=== PATIENT | female | born 1970 | race Caucasian/White ===

== ENCOUNTER 2019-11-14 09:57 | Emergency (ER) | payer OTHER ==
[2019-11-14] MEDS ORDERED: ASPIRIN 81 MG TABLET, CHEWABLE PO ONE (10:05)
[2019-11-14] MEDS ORDERED: MORPHINE SULFATE 10 MG/ML INJ IV ONE (10:08)
[2019-11-14] MEDS ORDERED: ONDANSETRON HCL INJ/PF 4 MG/2 ML SDV IV ONE (10:09)
--- NOTE | 2019-11-14 10:10 | ER Document Report ---
ED Medical Screen (RME) - General Chief Complaint: Chest Pain Stated Complaint: CHEST PAIN Time Seen by Provider: 11/14/19 10:05 Mode of Arrival: Wheelchair Information source: Patient Notes: 49-year-old female presented to ED for complaint of chest pressure squeezing pain x3 days. She states it is a level 2/5 at this time. She states she has had some shortness of breath starting yesterday and then she developed a cough. She states today she became much more lightheaded and nauseated. 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 She states she does not have any history of any surgeries. Last menstrual period was about 3 weeks ago. She states she does not smoke she does drink weekly and does not do any illicit drugs. She is alert oriented respirations regular nonlabored at this time. She does appear to be in some distress due to the discomfort. I have greeted and performed a rapid initial assessment of this patient. A comprehensive ED assessment and evaluation of the patient, analysis of test results and completion of medical decision making process will be conducted by an additional ED providers. - Related Data Allergies/Adverse Reactions: No Known Allergies Allergy (Unverified 11/14/19 10:07)
[2019-11-14 10:57] LABS: ABSOLUTE EOSINOPHILS # (AUTO) 0.2 10^3/uL (0.0-0.6); ABSOLUTE MONOCYTES (AUTO) 0.8 10^3/uL (0.1-1.4); ABSOLUTE NEUT (AUTO) 3.5 10^3/uL (1.7-8.2); BASOPHILS % (AUTO) 0.5 % (0-2); EOSINOPHILS % (AUTO) 2.8 % (0-6); HEMOGLOBIN 13.3 g/dL (12.0-15.5); LYMPHOCYTES % (AUTO) 30.4 % (13-45); MEAN CORPUSCULAR HEMOGLOBIN 32.2 pg (27.0-33.4); MEAN CORPUSCULAR HGB CONC 35.1 g/dL (32.0-36.0); MEAN CORPUSCULAR VOLUME 92 fl (80-97); MONOCYTES % (AUTO) 12.2 % (3-13); PLATELET COUNT 254 10^3/uL (150-450); RED BLOOD COUNT 4.15 10^6/uL (3.72-5.28); RED CELL DISTRIBUTION WIDTH 13.2 % (11.5-14.0); SEGMENTED NEUTROPHILS % (AUTO) 54.1 % (42-78); TOTAL CELLS COUNTED % (AUTO) 100 %; WHITE BLOOD COUNT 6.5 10^3/uL (4.0-10.5)
[2019-11-14 11:00] LABS: INTERNATIONAL RATION (INR) 0.91; PARTIAL THROMBOPLASTIN TIME 30.4 SEC (23.5-35.8); PROTHROMBIN TIME 12.5 SEC (11.4-15.4)
--- NOTE | 2019-11-14 11:01 | RADIOLOGY REPORT (SQ) ---
EXAM DESCRIPTION: CHEST 2 VIEWS IMAGES COMPLETED DATE/TIME: 11/14/2019 10:52 am REASON FOR STUDY: chest pain for 3 days COMPARISON: None. TECHNIQUE: Frontal and lateral radiographic views of the chest acquired. NUMBER OF VIEWS: Two view. LIMITATIONS: None. FINDINGS: LUNGS AND PLEURA: No opacities, masses or pneumothorax. No pleural effusion. MEDIASTINUM AND HILAR STRUCTURES: No masses or contour abnormalities. HEART AND VASCULAR STRUCTURES: Heart normal size. No evidence for failure. BONES: No acute findings. HARDWARE: None in the chest. OTHER: No other significant finding. IMPRESSION: NO SIGNIFICANT RADIOGRAPHIC FINDING IN THE CHEST. TECHNICAL DOCUMENTATION: JOB ID: [id number] 2010 [employer]- All Rights Reserved Reading location - IP/workstation name: [email or web address]
--- NOTE | 2019-11-14 11:13 | ER Document Report ---
ED General - General Chief Complaint: Chest Pain > 30 Stated Complaint: CHEST PAIN Time Seen by Provider: 11/14/19 10:05 Mode of Arrival: Wheelchair - [facility] Notes: Chief complaint: Chest pain History of present illness: 49-year-old female diagnosed with mitral valve prolapse over 5 years ago not taking any regular medication indicates that she has been under stress over the last 2 weeks and now reports a 5-day history of intermittent sharp fleeting central chest discomfort occurring at rest and some degree aggravated by movement and exertion. This is nonradiating. Associated with some minimal dyspnea. No diaphoresis. Slightly nauseated this morning. No vomiting. No cough or sputum production. No fever or chills. No hemoptysis. No history of CAD. No known history of thromboembolic disease. Patient is not diabetic. She is not hypertensive. She is a non-smoker. Family history is negative for CAD. She has no history of hyperlipidemia. She denies any use of illicit drugs. - Related Data Allergies/Adverse Reactions: No Known Allergies Allergy (Unverified 11/14/19 10:07) Home Medications: multivitamins, no rx Past Medical History - General Information source: Patient - Social History Smoking Status: Never Smoker Chew tobacco use (# tins/day): No Frequency of alcohol use: Social Drug Abuse: None Family History: Other - No thromboembolic disease. denies: CAD Patient has homicidal ideation: No - Past Medical History Cardiac Medical History: Reports: Other - Mitral prolapse Psychiatric Medical History: Reports: None Traumatic Medical History: Reports: None Surgical Hx: Negative Review of Systems - Review of Systems Notes: Constitutional: Negative for fever. HENT: Negative for sore throat. Eyes: Negative for visual changes. Cardiovascular: As per HPI. Respiratory: As per HPI. Gastrointestinal: Negative for abdominal pain, vomiting or diarrhea. Genitourinary: Negative for dysuria. Musculoskeletal: Negative for back pain. Skin: Negative for rash. Neurological: Negative for headaches, weakness or numbness. 10 point ROS negative except as marked above and in HPI. Physical Exam - Vital signs Vitals: Resp Pulse Ox 13 100 11/14/19 10:10 11/14/19 10:10 - Notes Notes: GENERAL: Female patient approximately stated age who is slightly tearful and anxious. SKIN: Good turgor no rashes. HEAD: Normocephalic atraumatic. EYES: PERRLA. EOMI. Conjunctivae and sclerae clear. EARS: CANALS AND TMS CLEAR. NOSE: CLEAR. MOUTH: Moist mucosa. Good dentition. No stridor or edema. No drooling. NECK: Supple. No masses or thyromegaly. No adenopathy. Carotids 2+ without bruits. No JVD. BACK: Symmetrical without tenderness. CHEST: Respirations unlabored. Breath sounds clear and symmetrical. HEART: Mild tenderness left anterior chest wall. Regular rhythm. No murmur gallop or rub. ABDOMEN: Soft nontender without masses, organomegaly or rebound. Bowel sounds normally active. No bruits. GENITALIA: Deferred. EXTREMITIES: Trace bilateral pretibial edema. No calf tenderness. Cap refill less than 1.5 seconds. Dorsalis pedis and posterior tibial pulses 3+ and symmetrical. NEUROLOGICAL: GCS 15. Alert and oriented x3. Normal gait. Fluent speech. Cranial nerves II through XII intact. Sensorimotor and cerebellar normal. Normal tone. PSYCHIATRIC: Tearful and anxious affect. Course - Re-evaluation Re-evalutation: 11/14/19 12:24 Patient has a low heart score. She has a history of mitral prolapse and her present symptoms I think are most consistent with mitral prolapse. Her troponin is normal. Her chest x-ray is normal. Her d-dimer is normal. Spoke with her in detail about her evaluation and current findings. She was given several options in terms of present management. After extended discussion of potential risks and benefits of beta-raf therapy she wants to try some low-dose metoprolol which I think would be very appropriate. I will also refer her to a muffler mechanic for outpatient follow-up. We discussed red flag symptoms which should prompt a return to the ED. Findings, clinical impression and plan of treatment have been discussed with patient/family. Understanding of current findings and recommendations has been acknowledged by them and there is agreement regarding disposition and follow-up. - Vital Signs Vital signs: Temp Pulse Resp BP Pulse Ox 9 L 131/67 H 100 11/14/19 12:01 11/14/19 12:01 11/14/19 12:01 - Laboratory Result Diagrams: 11/14/19 10:43 11/14/19 10:43 - EKG Interpretation by Me Additional EKG results interpreted by me: 11/14/19 11:14 Twelve-lead EKG from 1004 hrs. reviewed contemporaneously by me. Indication for study: Chest pain. Rate 85. Normal sinus rhythm. Normal intervals. Normal QRS axis +[address]/T wave changes present. No prior tracing for comparison. Interpretation: Normal tracing. Discharge - Discharge Clinical Impression: Chest pain, Mitral valve prolapse Condition: Stable Disposition: HOME, SELF-CARE Additional Instructions: Mitral Valve Prolapse Mitral valve prolapse is very common, affecting about 1 in 25 people. The mitral valve controls blood flow between the left atrium (upper chamber) and left ventricle of the heart. In mitral prolapse, the valve bulges back into the atrium when the ventricle contracts. Usually, mitral valve prolapse causes no symptoms, and requires no treatment. But some people with mitral prolapse have chest pain, palpitations, lightheadedness, or fatigue. In many of these cases, it's not really clear if the mitral prolapse is causing these symptoms. Mitral prolapse is diagnosed by an echocardiogram. If mitral prolapse is severe, or accompanied by mitral regurgitation (tello kflow of blood), the valve can be prone to infection. Infection of a heart valve is called endocarditis. The infection can start during dental or surgical procedures. Most patients with significant mitral prolapse should take antibiotics before procedures. If mitral prolapse is causing symptoms, medication can be prescribed. Most patients do not need any treatment at all. Call the doctor or return if you develop persistent palpitation, severe chest pain, fainting or severe dizziness, or any other significant change in your health. Take prescribed medication as instructed. Follow-up with referral muffler mechanic. Return here as needed for new or worsening symptoms: Pain that is worsening or unimproved Uncontrolled vomiting High fever or shaking chills Overall worsening Prescriptions: Metoprolol Succinate [Toprol Xl 25 mg Tab.sr] 25 mg PO DAILY #30 tab.sr.24h Referrals: ARMINDA GODINEZ MD [ACTIVE PROVISIONAL STAFF] - Follow up as needed
[2019-11-14 11:14] LABS: ALBUMIN 4.2 g/dL (3.5-5.0); ALKALINE PHOSPHATASE 56 U/L (38-126); ANION GAP 6 (5-19); ASPARTATE AMINO TRANSFERASE 17 U/L (14-36); BILIRUBIN,DIRECT 0.2 mg/dL (0.0-0.4); BILIRUBIN,TOTAL 0.5 mg/dL (0.2-1.3); BLOOD UREA NITROGEN 12 mg/dL (7-20); CALCIUM 9.4 mg/dL (8.4-10.2); CARBON DIOXIDE 30 mmol/L (22-30); CHLORIDE 104 mmol/L (98-107); CREATINE KINASE 68 U/L (30-135); GLUCOSE 98 mg/dL (75-110); POTASSIUM 4.3 mmol/L (3.6-5.0); TOTAL PROTEIN 6.9 g/dL (6.3-8.2)
[2019-11-14 12:04] VITALS: BP 131/67
--- NOTE | 2019-11-14 13:24 | EKG REPORT ---
SEVERITY:- NORMAL ECG - SINUS RHYTHM : Confirmed by: Oral Munoz MD 14-Nov-2019 13:23:56
== END 2019-11-14 12:40 | disposition home or self-care (01) ==
LOC: ER 09:57
DX: R07.9 Chest pain, unspecified (principal); I34.1 Nonrheumatic mitral (valve) prolapse; R06.00 Dyspnea, unspecified
CPT/HCPCS: 36415; 71046; 80053; 82550; 83735; 84443; 84484; 85025; 85379; 85610; 85730; 93005; 93010; 99285